=== PATIENT | female | born 1980 | race Caucasian/White ===

== ENCOUNTER 2023-06-18 13:47 | Outpatient (CLI) | payer OTHER, SELFPAY ==
--- NOTE | 2023-06-18 14:00 | CRLHL7_ITS ---
For Patients: As a result of the Century Cures Act, medical imaging exams and procedure reports are released immediately into your electronic medical record. You may view this report before your referring provider. If you have questions, please contact your health care provider. BILATERAL SCREENING MAMMOGRAM WITH COMPUTER-AIDED DETECTION TECHNIQUE: CC and MLO views were obtained. These mammographic images have been obtained using full-field digital technique. These mammographic images were interpreted with the benefit of computer-aided detection. COMPARISON FILM: 09/20/20, 10/10/20, 03/28/21. FINDINGS: There are scattered areas of fibroglandular density. IMPRESSION: There is no radiographic evidence for malignancy. ASSESSMENT: BI-RADS Category 1: Negative RECOMMENDATION: Routine screening mammogram in 1 year. A lay language report of this examination will be provided to the patient. ALIN MARIN M.D. Diagnostic Radiologist [email or web address] Transcribed: 07/06/2023, 2:[address]/Dictated by: Alin Marin MD @ 07/06/2023 9:37:00 AM (Electronically Signed)
== END 2023-06-18 13:48 | disposition home or self-care (01) ==
LOC: MAMMO 13:48
PROVIDERS: PCP Family Medicine; Visit Provider Family Medicine
DX: Z12.31 Encounter for screening mammogram for malignant neoplasm of breast (principal)
CPT/HCPCS: 77067

== ENCOUNTER 2024-06-30 08:00 | Outpatient (CLI) | payer BC, SELFPAY ==
--- NOTE | 2024-06-30 08:15 | CRLHL7_ITS ---
For Patients: As a result of the Century Cures Act, medical imaging exams and procedure reports are released immediately into your electronic medical record. You may view this report before your referring provider. If you have questions, please contact your health care provider. BILATERAL SCREENING MAMMOGRAM WITH COMPUTER-AIDED DETECTION AND TOMOSYNTHESIS TECHNIQUE: CC and MLO views were obtained. These mammographic images have been obtained using full-field digital technique. These mammographic images were interpreted with the benefit of computer-aided detection. Breast tomosynthesis was used in this interpretation. COMPARISON FILM: 06/18/23, 09/20/20. FINDINGS: There are scattered areas of fibroglandular density. IMPRESSION: There is no radiographic evidence for malignancy. ASSESSMENT: BI-RADS Category 1: Negative RECOMMENDATION: Routine screening mammogram in 1 year. A lay language report of this examination will be provided to the patient. ALIN MARIN M.D. Diagnostic Radiologist [email or web address] Transcribed: 06/30/2024, 4:[address]/Dictated by: Alin Marin MD @ 06/30/2024 12:01:00 PM (Electronically Signed)
== END 2024-06-30 08:01 | disposition home or self-care (01) ==
LOC: MAMMO 08:00
PROVIDERS: PCP Family Medicine; Visit Provider Family Medicine
DX: Z12.31 Encounter for screening mammogram for malignant neoplasm of breast (principal)
CPT/HCPCS: 77063; 77067

== ENCOUNTER 2025-03-06 12:55 | Outpatient (CLI) | payer BC, SELFPAY ==
[2025-03-09 06:58] LABS: HPV Source Cervix
[2025-03-09 09:52] LABS: Pap Test Digital Imaging Done
== END 2025-03-06 12:56 | disposition home or self-care (01) ==
PROVIDERS: PCP Family Medicine; Visit Provider Registered Nurse
DX: Z12.4 Encounter for screening for malignant neoplasm of cervix (principal); Z11.51 Encounter for screening for human papillomavirus (HPV)
CPT/HCPCS: 87624; 87625; 88141; 88142; 88175

== ENCOUNTER 2025-03-23 06:05 | Day surgery (SDC) | payer BC, SELFPAY ==
[2025-03-23 06:13] VITALS: BMI 35.7
[2025-03-23 06:26] VITALS: BP 136/86; PULSE 86; RESP 16; TEMP 35.8; O2SAT 97
[2025-03-23] MEDS: SODIUM CHLORIDE 0.9 % (FLUSH) 10 ML SYRINGE IVF (06:55)
[2025-03-23] MEDS: LACTATED RINGERS 1000 ML 1,000 ML 100 ML IV (06:55)
[2025-03-23 07:05] LABS: Ur HCG Qualitative* Negative (Negative)
--- NOTE | 2025-03-23 07:12 | W.PM.H&PU ---
History & Physical Update History & Physical Update H&P Reviewed and patient assessed: No changes noted
[2025-03-23] MEDS: LIDOCAINE 1% MDV 20 ML INJECTION (07:49)
[2025-03-23] MEDS: FERRIC SUBSULFATE 8 GM VIAL 1 VIAL TOPICAL (08:08)
[2025-03-23 08:22] VITALS: BP 110/75; PULSE 72; RESP 16; TEMP 36.4; O2SAT 89
--- NOTE | 2025-03-23 08:28 | P.ANES_ITS ---
Anesthesia Charges Start Date/Time Anesthesia Start Date: 03/23/25 Anesthesia Start Time: 07:29 Stop Date/Time Anesthesia Stop Date: 03/23/25 Anesthesia Stop Time: : Coding CPT Codes CPT Codes: ANESTH HYSTEROSCOPE/GRAPH - 07452 ([id number]) P2 - PATIENT W/MILD SYST DISEASE, QK - OWNER PROFESSIONAL ENGINEER 2-4 CNCRNT ANES PROC, QX - SAMPLE TESTER SVC W/ MD MED DIRECTION
--- NOTE | 2025-03-23 08:28 | W.ANESCHARGE ---
Anesthesia Charges Start Date/Time Anesthesia Start Date: 03/23/25 Anesthesia Start Time: 07:29 Stop Date/Time Anesthesia Stop Date: 03/23/25 Anesthesia Stop Time: : Coding CPT Codes CPT Codes: ANESTH HYSTEROSCOPE/GRAPH - 12737 ([id number]) P2 - PATIENT W/MILD SYST DISEASE, QK - STOVE POLISHER 2-4 CNCRNT ANES PROC, QX - CRM MARKETING EXECUTIVE SVC W/ MD MED DIRECTION
[2025-03-23 08:30] VITALS: BP 101/81; PULSE 59; RESP 16; O2SAT 91
--- NOTE | 2025-03-23 08:34 | W.PM.GYNPROC ---
Procedure Note Date of procedure: 03/23/25 Will [facility] bill your pro fee for this procedure?: Yes Pre-op diagnosis: Cervical vs prolapsed endometrial polyp on office exam Post-op diagnosis: Large (3 cm) prolapsed cervical polyp Multiple smaller endocervical polyps Endometrial polyp Procedure: Excision of prolapsed ectocervical polyp Hysteroscopy, endometrial polypectomy, dilation and curettage Biopsy of endocervical polyps Anesthesia: MAC and local Complications: None Surgeon: Erna Mosley MD Estimated blood loss (mL): 10 IV fluids (mL): 400 Urine Output (mL): 60 Pathology: specimen obtained, sent to pathology (1. Prolapsed cervical polyp; 2. Endometrial curettings; 3. Endocervical polyps) Condition: stable Disposition: same day Findings: Saline deficit 325 mL 1. Exam under anesthesia revealed a continuing presence of an approximately 3 cm prolapsed cervical polyp which released mucus when grasped with ring forceps. It had a thick stalk attached to the lower endocervical cavity. There were multiple small polyps palbable and a few visualized around the lower endocervical canal; two of these were sampled with Tiscler's biopsy forcep as described below The endometrial cavity was normal in shape. There was a small (<1 cm) posterior lower uterine segment polyp. OTherwise, the endometrium and upper endocervix were normal in appearance. 2. Bimanual exam under anesthesia revealed uterus to be of normal shape, size and consistency. There were no palpable adnexal masses. Procedure Description: Procedure in detail: Patient was taken to the operating room with IV running. She was positioned in dorsal lithotomy position with her legs fully supported in Yellofin stirrups. Monitored anesthesia care was administered. She was prepped and draped in the usual sterile fashion. Exam under anesthesia was performed for the above-noted findings. Cervical block was performed with 10 mL of 1% lidocaine. Speculum was inserted. Large prolapsed cervical polyp was immediately visualized as described above. The polyp was grasped with a ring forcep and gentle traction was placed. The stalk of the prolapsed polyp was cut with scissors and the polyp removed. Bleeding from the base of the polyp was initially addressed by placing a ring forcep over this on the posterior cervical lip. Cervix was serially dilated to accommodate the TRUCLEAR hysteroscope. This was assembled with saline inflow and outflow in place. The line was flushed of bubbles. The hysteroscope was advanced through the cervix into the endometrial cavity for the above noted findings. The tissue morcellator was then inserted through the operating channel. Window lock was performed. Under direct visualization, the endometrial cavity was circumferentially curetted with the tissue morcellator. The hysteroscope and morcellator were then removed from the uterus. Two small endocervical polyps along the anterior lower endocervix were sampled with Tischler biopsy forceps, releasing cervical mucus. The stalk of the prolapsed polyp was then examined. This was coagulated with Bovie. Monsel's solution was then applied to the lower endocervix. Hemostasis was noted. Patient tolerated procedure well. She was taken to recovery area in stable condition.
--- NOTE | 2025-03-23 08:36 | SUR.OPER ---
Fluid Deficit 325 ml
[2025-03-23 08:45] VITALS: BP 104/74; PULSE 56; RESP 16; O2SAT 96
[2025-03-23 09:00] VITALS: BP 116/94; PULSE 59; RESP 16; O2SAT 100
--- NOTE | 2025-03-23 09:01 | P.ANES_ITS ---
Anesthesia Charges Start Date/Time Anesthesia Start Date: 03/23/25 Anesthesia Start Time: 07:29 Stop Date/Time Anesthesia Stop Date: 03/23/25 Anesthesia Stop Time: : Coding CPT Codes CPT Codes: ANESTH HYSTEROSCOPE/GRAPH - 42305 ([id number]) QK - SEARCH ENGINE OPTIMIZATION SPECIALIST 2-4 CNCRNT ANES PROC, QX - STOCK CHECKERER SVC W/ MD MED DIRECTION, P2 - PATIENT W/MILD SYST DISEASE
--- NOTE | 2025-03-23 09:01 | W.ANESCHARGE ---
Anesthesia Charges Start Date/Time Anesthesia Start Date: 03/23/25 Anesthesia Start Time: 07:29 Stop Date/Time Anesthesia Stop Date: 03/23/25 Anesthesia Stop Time: : Coding CPT Codes CPT Codes: ANESTH HYSTEROSCOPE/GRAPH - 75964 ([id number]) QK - VACUUM TECHNICIAN 2-4 CNCRNT ANES PROC, QX - OBSTETRICS TEACHER SVC W/ MD MED DIRECTION, P2 - PATIENT W/MILD SYST DISEASE
== END 2025-03-23 09:15 | disposition home or self-care (01) ==
PROVIDERS: PCP Family Medicine; Visit Provider Obstetrics & Gynecology
PROC: 0UDB8ZZ Extraction of Endometrium, Via Natural or Artificial Opening Endoscopic (ICD-10-PCS; CPT 58558; principal; 2025-03-23 07:15)
DX: N84.1 Polyp of cervix uteri (principal); N84.0 Polyp of corpus uteri
CPT/HCPCS: 58558; 00952; 36415; 81025; 86850; 86900; 86901; 88305; J2003; C1782; J1100; J1885; J2250; J2405; J2704; J3010; J7120